=== PATIENT | male | born 1970 | race Two or more races ===

== ENCOUNTER 2023-02-19 06:00 | Day surgery (SDC) | payer OTHER ==
[~2023-02-19] VITALS: Ht 182.9 cm; Wt 100.2 kg
[2023-02-19] MEDS ORDERED: BACTRIM DS TAB1 EACH PO (10:48)
[2023-02-19] MEDS ORDERED: TRAMADOL HCL50 MG PO (10:48)
== END 2023-02-19 16:35 | disposition home or self-care (01) ==
LOC: CIR.AMB 06:00
PROVIDERS: ATTEND Surgery
DX: D17.1 Benign lipomatous neoplasm of skin and subcutaneous tissue of trunk (principal); D49.2 Neoplasm of unspecified behavior of bone, soft tissue, and skin; R22.9 Localized swelling, mass and lump, unspecified; Z20.822 Contact with and (suspected) exposure to COVID-19